=== PATIENT | male | born 1955 | race Caucasian/White ===

== ENCOUNTER → 2024-08-05 | Outpatient (CLI) | payer MEDICARE, BC ==
[2024-08-05 08:54] LABS: URINE WBC 0 /hpf (0-3)
[2024-08-05 09:08] LABS: CALCIUM 9.9 mg/dL (8.3-10.5)
[2024-08-05 09:20] LABS: URINE APPEARANCE CLEAR (CLEAR); URINE BILIRUBIN NEGATIVE (NEGATIVE); URINE BLOOD NEGATIVE (NEGATIVE); URINE COLOR YELLOW (YELLOW); URINE GLUCOSE NEGATIVE (NEGATIVE); URINE KETONE NEGATIVE (NEGATIVE); URINE LEUKOCYTE ESTERASE NEGATIVE (NEGATIVE); URINE NITRATE NEGATIVE (NEGATIVE); URINE PROTEIN(semi-quant) NEGATIVE (NEGATIVE)
== END ==
LOC: LAB 08:47
PROVIDERS: Family Medicine
DX: N45.1 Epididymitis (principal)

== ENCOUNTER → 2024-08-30 | Outpatient (CLI) | payer MEDICARE, BC | LOC: RAD 14:00 | DX: K40.90 Unilateral inguinal hernia, without obstruction or gangrene, not specified as recurrent (principal) ==